=== PATIENT | male | born 1995 | race Asian ===

== ENCOUNTER 2019-11-04 04:59 | Day surgery (SDC) | payer OTHER ==
[2019-11-03 14:58] VITALS: BMI 19.7
--- NOTE | 2019-11-04 10:18 | HP ---
History & Physical Update - History History: No Change - Physical Physical: No Change - Assessment Assessment: No Change - Plan Plan: No Change (for open repair RIH w/mesh; r/b/t/a's d/w the patient pre-op and informed consent obtained.)
[2019-11-04] MEDS ORDERED: MIDAZOLAM HCL 2 MG/2 ML SINGLE DOSE VIAL ONE (10:29)
[2019-11-04] MEDS ORDERED: LIDOCAINE HCL 1%, 10 MG/ML (20ML VIAL) ONE (10:29)
[2019-11-04] MEDS ORDERED: ROCURONIUM BROMIDE 50 MG/5 ML SYRINGE ONE (10:29)
[2019-11-04] MEDS ORDERED: PROPOFOL 20 ML ONE ×2 (10:29→10:50)
[2019-11-04] MEDS ORDERED: ceFAZolin SODIUM 1 GM VIAL ONE (10:57)
[2019-11-04] MEDS ORDERED: ceFAZolin SODIUM 1 GM VIAL IVPB ONE (11:02)
[2019-11-04] MEDS ORDERED: DEXAMETHASONE SOD PHOSPHATE 4 MG/1 ML VIAL ONE (11:04)
[2019-11-04] MEDS ORDERED: BUPIVACAINE HCL/PF 0.5% (5 MG/ML) 30 ML VIAL IJ ONE ×2 (11:07)
[2019-11-04] MEDS ORDERED: LIDOCAINE HCL 1%, 10 MG/ML (50 mL VIAL) IJ ONE ×2 (11:07)
[2019-11-04] MEDS ORDERED: oxyCODONE HCL 5 MG TABLET PO PRN (11:40)
[2019-11-04] MEDS ORDERED: ONDANSETRON 4 MG/2 ML VIAL IVPUSH PRN (11:40)
[2019-11-04] MEDS ORDERED: LACTATED RINGERS SOLUTION 1,000 ML IV SCH (11:45)
--- NOTE | 2019-11-04 12:08 | OP ---
Operative Note - Note: Operative Date: 11/04/19 Pre-Operative Diagnosis: right inguinal hernia Operation: repair rght inguinal hernia w/mesh Findings: indirect RIH Post-Operative Diagnosis: Same as Pre-op Surgeon: Julio Rojas Director Operating Room: Bradley Plata Anesthesiologist/[employer] OPERATOR: Willie Waters Anesthesia: General Specimens Removed: hernia sac Estimated Blood Loss (mls): 5
--- NOTE | 2019-11-04 12:40 | SURG ---
Surgery Meter Tester Note Meter Tester: Bradley Plata PA-C Date of Service: 11/04/19 Diagnosis: right inguinal hernia (indirect) Procedure: Repair right inguinal hernia w/mesh I was present for the entirety of the operative procedure. For further detail, please refer to operative report. Visit type - Case Type Case Type: Scheduled - New patient This patient is new to me today: Yes Date on this admission: 11/04/19
[2019-11-04 14:09] VITALS: TEMP 97.2
[2019-11-04 15:40] VITALS: BP 110/63; PULSE 88
--- NOTE | 2019-11-07 13:20 | PATH ---
Surgical Pathology Report Patient Name: CONY BEAUCHAMP Med. Rec. #: [id number] /Age/Gender: 1995 (Age: 24) / M Account: [id number] Location: [facility] SURGICAL Taken: 11/04/2019 Received: 11/04/2019 Reported: 11/07/2019 Physicians: Julio Rojas MD Specimen(s) Received HERNIA SAC Clinical History Right inguinal hernia Final Diagnosis SOFT TISSUE, RIGHT INGUINAL, EXCISION: HERNIA SAC. Electronically Signed Artie Saenz M.D. Gross Description Received in formalin labeled "hernia sac," is a 5.5 x 4.0 x 0.2 cm aggregate of pink-monroe portions of fibromembranous tissue, consistent with a hernia sac. Snag Grinder sections are submitted in one cassette. DL/11/04/2019 saudi/11/04/2019
--- NOTE | 2019-11-10 12:20 | OP ---
DATE OF OPERATION: 11/04/2019 PREOPERATIVE DIAGNOSIS: Right inguinal hernia. PROCEDURE: Repair right inguinal hernia with Parietex ProGrip mesh. SURGEON: Julio Rojas MD ICE PULLER: KB Last ANESTHESIA: General. OPERATIVE FINDINGS: There was an indirect right inguinal hernia. The rest of the findings were unremarkable. DESCRIPTION OF PROCEDURE: The patient was placed on the operating table in supine position, and after the induction of general anesthesia, the patient's right groin and abdomen were prepped with ChloraPrep and draped in sterile fashion. A time- out was taken, and a transverse groin crease incision was mapped out and the area infiltrated with 1% lidocaine, 0.5% Marcaine. Incision was made with a scalpel and taken down through skin, subcutaneous tissue, and Romaine fascia to the external oblique fascia. The external oblique fascia was opened proximally in the direction of its fibers and distally as well through the external ring. The cord structures and nerve were elevated at the level of the pubic tubercle and a Chavies drain placed around them for retraction and identification purposes. The hernia was reduced and the indirect sac identified within the cord substance. It was dissected all the way up to the internal ring where high ligation was carried out with 2-0 Vicryl suture. Redundant sac was excised and sent for pathological examination. The floor of the inguinal canal was then repaired by placing a piece of Parietex Progrip mesh in the groin and anchoring it at the pubic tubercle shelving edge and conjoint tendon respectively with interrupted 2-0 Prolene. A keyhole was created through the cord structures and the tails of the mesh brought above the level of the internal ring, crossed, and anchored there with interrupted 2-0 Prolene as well. Hemostasis was checked for and noted to be good and then the wound was copiously irrigated with sterile saline. Hemostasis was again verified and then the cord structures and nerve were returned to their normal anatomic position and the external oblique fascia closed over them using continuous 2-0 Vicryl recreating the external ring. Romaine fascia was reapproximated with interrupted 2-0 Vicryl, the deep dermis with interrupted 3-0 Vicryl, and the skin edges with 4-0 Monocryl in a subcuticular, continuous fashion. Steri-Strips and dry sterile dressings were placed and the procedure terminated at this point and the patient aroused from general anesthesia and transferred to the post anesthesia care unit in stable condition awake and alert. ESTIMATED BLOOD LOSS: 5 mL. REPLACEMENTS: Crystalloid. DRAINS: None. SPECIMENS: Hernia sac to Pathology. I, Julio Rojas, was physically present in the operating room from the time the patient was placed on the operating room table until he was transferred to the post anesthesia care unit in my company. MD JENNIFER Longoria/[id number] MTDD
== END 2019-11-04 15:46 | disposition home or self-care (01) ==
LOC: JASU-SURG 04:59
PROVIDERS: ATTEND Surgery
PROC: 0YU50JZ Supplement Right Inguinal Region with Synthetic Substitute, Open Approach (ICD-10-PCS; principal; 2019-11-04 12:00)
DX: K40.90 Unilateral inguinal hernia, without obstruction or gangrene, not specified as recurrent (principal)
CPT/HCPCS: 88302-TC; 94760